=== PATIENT | male | born 1990 | race Caucasian/White ===

== ENCOUNTER 2017-12-02 22:25 | Emergency (ER) | payer MEDICAID ==
[2017-12-02 22:32] VITALS: BP 139/95
[2017-12-02] MEDS ORDERED: Ketorolac 60 MG/2 ML SDV IM ONE (22:54)
--- NOTE | 2017-12-02 23:03 | EDM.PDOC ---
ED HPI GENERAL MEDICAL PROBLEM - General Chief Complaint: Back Pain or Injury Stated Complaint: back pain Time Seen by Provider: 12/02/17 22:49 - History of Present Illness INITIAL COMMENTS - FREE TEXT/NARRATIVE: Shelton is a 27 year old male who presents to the ED with c/o right sided low back pain that radiates down his right leg. He reports he has had similar pain before but tonight he is unable to manage the pain. He denies any recent injury. Does report he has been working more than usual and on his feet more. Denies any numbness, tingling, loss of bowel or bladder. Denies any other symptoms. He reports walking makes the pain worse. He has not found anything to relieve the pain tonight. He reports he has tried stretches recommended to him by PT in the past, Tylenol, ice and heat without relief. He reports the pain first started this afternoon and has worsened this evening. 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 Right Lower Back Pain Score (Numeric/FACES): 9 - Related Data Allergies Allergy/AdvReac Type Severity Reaction Status Date / Time No Known Allergies Allergy Verified 12/02/17 22:28 Home Meds: Home Meds Acetaminophen [Tylenol Extra Strength] 1,000 mg PO ASDIRECTED 12/02/17 [History] Past Medical History - Past Health History Medical/Surgical History: Denies Medical/Surgical History - Past Surgical History Musculoskeletal Surgical History: Reports: Other (See Below) Other Musculoskeletal Surgeries/Procedures:: SURGERY TO R) HAND Social & Family History - Family History Family Medical History: Noncontributory - Tobacco Use Smoking Status *Q: Current Every Day Smoker Years of Tobacco use: 10 Packs/Tins Daily: 1 - Caffeine Use Caffeine Use: Reports: Coffee, Soda - Recreational Drug Use Recreational Drug Use: No ED ROS GENERAL - Review of Systems Review Of Systems: ROS reveals no pertinent complaints other than HPI. ED EXAM,LOWER BACK PAIN/INJURY - Physical Exam Exam: See Below Exam Limited By: No Limitations General Appearance: Alert, WD/WN, Mild Distress Extremities: Normal Inspection, Normal Range of Motion, Non-Tender, No Pedal Edema, Normal Capillary Refill Neurological: Alert, Normal Mood/Affect, Normal Dorsiflexion, CN II-XII Intact, Normal Plantar Flexion, Normal Gait (occassional limp RLE), Normal Reflexes, No Motor/Sensory Deficits, Oriented x 3, Other (tender over R) SI). No: Straight Leg Raise (L), Straight Leg Raise (R) Psychiatric: Normal Affect, Normal Mood Course - Vital Signs Last Recorded V/S: Last Vital Signs Temp 97.7 F 12/02/17 22:29 Pulse 61 12/02/17 22:29 Resp 20 12/02/17 22:29 BP 139/95 H 12/02/17 22:29 Pulse Ox 96 12/02/17 22:29 - Orders/Labs/Meds Orders: Active Orders 24 hr Category Date Time Status Orphenadrine [Norflex] Med 12/02/17 23:00 Active 60 mg IM STAT Medication Orders Orphenadrine Citrate (Norflex) 60 mg IM STAT KATLYN Last Admin: 12/02/17 22:59 Dose: 60 mg Meds: Medications Generic Name Dose Route Start Last Admin Trade Name Freq PRN Reason Stop Dose Admin Orphenadrine Citrate 60 mg 12/02/17 23:00 12/02/17 22:59 Norflex IM 60 mg STAT KATLYN Administration Discontinued Medications Generic Name Dose Route Start Last Admin Trade Name Freq PRN Reason Stop Dose Admin Ketorolac Tromethamine 60 mg 12/02/17 22:54 12/02/17 22:59 Toradol IM 12/02/17 22:55 60 mg STAT ONE Administration - Re-Assessments/Exams Free Text/Narrative Re-Assessment/Exam: 12/02/17 23:00 Toradol and Norflex administered. 12/02/17 23:25 Patient reports pain much improved. Will discharge home. Departure - Departure Time of Disposition: 23:23 Disposition: Home, Self-Care 01 Condition: Good Clinical Impression: Sciatica, right side - Discharge Information *PRESCRIPTION DRUG MONITORING PROGRAM REVIEWED*: Not Applicable *COPY OF PRESCRIPTION DRUG MONITORING REPORT IN PATIENT LEXIS: Not Applicable Instructions: Sciatica, [id number] Referrals: Drake Young MD [Primary Care Provider] - Forms: ED Department Discharge Additional Instructions: 650 mg Tylenol and 600 mg ibuprofen every 6 hours as needed for pain Referral to PT. Call to scheduled appointment in morning. [phone] Ice/heat to affected area as needed for comfort Continue stretches as recommended by PT Follow up with PCP in clinic if symptoms worsen or do not improve - My Orders Last 24 Hours: My Active Orders 12/02/17 23:00 Orphenadrine [Norflex] 60 mg IM STAT - Assessment/Plan Last 24 Hours: My Active Orders 12/02/17 23:00 Orphenadrine [Norflex] 60 mg IM STAT
== END 2017-12-02 23:35 | disposition home or self-care (01) ==
LOC: CC.ED 22:25
DX: M54.41 Lumbago with sciatica, right side (principal); F17.210 Nicotine dependence, cigarettes, uncomplicated
CPT/HCPCS: 96372; 99283; J1885; J2360

== ENCOUNTER 2022-01-19 22:27 | Emergency (ER) | payer MEDICAID ==
[2022-01-19] MEDS ORDERED: Lidocaine 2% 5 ML SDV INJECT ONE (22:45)
[2022-01-19 23:00] VITALS: BP 116/66; PULSE 54
[2022-01-19] MEDS ORDERED: Diphtheria,Pertussis(Acell),Tetanus Vaccine 0.5 ML Syringe IM ONE (23:09)
== END 2022-01-19 23:30 | disposition home or self-care (01) ==
LOC: CC.ED 22:27
DX: S60.451A Superficial foreign body of left index finger, initial encounter (principal); Z23 Encounter for immunization; W45.8XXA Other foreign body or object entering through skin, initial encounter
CPT/HCPCS: 10120; 90471; 90715; 99283-25

== ENCOUNTER 2022-04-07 00:11 | Emergency (ER) | payer MEDICAID ==
[2022-04-07 00:57] VITALS: BP 126/77; PULSE 62
[2022-04-07] MEDS: Take Home: Amoxicillin/Clavulanate K 875-125 MG Tab, 2 Tab Pack PO ONE (00:57)
[2022-04-07] MEDS: Ketorolac 30 MG/ML SDV IM ONE (00:57)
== END 2022-04-07 01:15 | disposition home or self-care (01) ==
LOC: CC.ED 00:11
DX: K04.7 Periapical abscess without sinus (principal)
CPT/HCPCS: 96372; 99282; A9270; J1885; 99283

== ENCOUNTER 2022-08-19 18:11 | Emergency (ER) | payer MEDICAID ==
[2022-08-19 18:15] VITALS: BP 134/83; PULSE 56
[2022-08-19] MEDS: Ibuprofen 200 MG Tab PO ONE (18:27)
== END 2022-08-19 18:58 | disposition home or self-care (01) ==
LOC: CC.ED 18:11
DX: S92.415A Nondisplaced fracture of proximal phalanx of left great toe, initial encounter for closed fracture (principal); W17.89XA Other fall from one level to another, initial encounter
CPT/HCPCS: 73630-LT; 99283; A9270-GY